=== PATIENT | male | born 1945 | race Caucasian/White ===

== ENCOUNTER 2025-06-23 23:30 | Inpatient (IN) | payer MEDICARE ==
[~2025-06-23] VITALS: Ht 167.6 cm; Wt 90.7 kg
[2025-06-24] VITALS (54 sets, daily range): BP systolic 72–141; BP diastolic 40–90; TEMP 97.5–98.5; O2SAT 93–100
[2025-06-24] MEDS: IV NORMAL SALINE 1000 ML BAG IV ONE ×4 (00:02→03:51)
[2025-06-24 00:03] LABS: PLATELET COUNT (AUTO) 204 K/uL (152-348); RED BLOOD CELL COUNT(AUTO) 4.42 MIL/uL (4.06-5.63); RED CELL DISTRIBUTION WIDTH 14.1 % (12.1-16.2); WHITE BLOOD COUNT (AUTO) 5.7 K/uL (3.6-10.2)
[2025-06-24 00:15] LABS: CREATININE 2.5 mg/dL (0.6-1.3); SODIUM SERUM 142 mmol/L (136-145); UREA NITROGEN, BLOOD 41 mg/dL (7-18)
[2025-06-24] MEDS ORDERED: FENO43CA6 PO (00:18)
[2025-06-24] MEDS ORDERED: GABA300C PO ×2 (00:18→10:35)
[2025-06-24] MEDS ORDERED: THYR30TA2 PO (00:18)
[2025-06-24] MEDS ORDERED: LOSA25TA27 PO (00:18)
[2025-06-24] MEDS ORDERED: AMLO2.5T4 PO (00:18)
[2025-06-24 00:21] LABS: ASPARTATE AMINOTRANSFERASE 31 U/L (15-37); TOTAL PROTEIN, SERUM 7.3 g/dL (6.4-8.2)
[2025-06-24 00:24] LABS: ETHANOL < 3 MG/DL (0-10)
[2025-06-24 02:50] LABS: *BILIRUBIN,URIN 1+ (NEGATIVE); *BLOOD, URINE NEGATIVE (NEGATIVE); *CLARITY,URINE HAZY (CLEAR); *COLOR,URINE YELLOW (YELLOW); *KETONES,URINE NEGATIVE (NEGATIVE); *PROTEIN,URINE NEGATIVE (NEGATIVE); *UROBILINOGEN,URINE 1.0 E.U./dl (NORMAL); LEUKOCYTE ESTERASE ,URINE NEGATIVE (NEGATIVE); NITRITE, URINE NEGATIVE (NEGATIVE); UGLUCOSE NEGATIVE (NEGATIVE)
[2025-06-24 03:02] LABS: *AMPHETAMINE, URINE NEGATIVE (NEGATIVE); *BARBITURATE, URINE NEGATIVE (NEGATIVE); *BENZODIAZEPINE, URINE NEGATIVE (NEGATIVE); *CANNABINOID, URINE POSITIVE (NEGATIVE); *COCCAINE, URINE NEGATIVE (NEGATIVE); *OPIATE, URINE POSITIVE (NEGATIVE); *PHENCYCLIDINE SCREEN,URINE NEGATIVE (NEGATIVE); FENTANYL, URINE NEGATIVE (NEGATIVE)
[2025-06-24 03:06] LABS: SQUAMOUS EPITHELIAL CELL,UR FEW /HPF (NONE SEEN)
[2025-06-24 03:07] LABS: CALCIUM OXALATE CRYSTALS,UR FEW /HPF (NONE SEEN)
[2025-06-24] MEDS ORDERED: NALOXONE HCL 0.4 MG/ML AMPUL ONE (03:17)
[2025-06-24] MEDS: NALOXONE HCL 0.4 MG/ML AMPUL IV ONE (03:51)
[2025-06-24] MEDS ORDERED: REMEDY ESSENTIAL ZINC PASTE 113 GM TP PRN (04:00)
[2025-06-24] MEDS ORDERED: ONDANSETRON 4 MG/2 ML VIAL IV PRN (04:00)
[2025-06-24] MEDS: IV NS 1000 ML 1,000 ML IV ONE ×2 (08:17→14:24)
[2025-06-24 08:57] LABS: ABG BASE EXCESS -8.6 mmol/L (-2.0-3.0); ABG HCO3 18.9 mmol/L (21.0-28.0); ABG PCO2 48.1 mmHg (35.0-48.0); ABG PH 7.213 (7.350-7.450); ABG PO2 103.0 mmHg (83.0-108.0); ABG SITE RIGHT RADIAL; ABG TOTAL HEMOGLOBIN 10.6 G/dL (13.5-17.5); AaDO2 96.5 mmHg; FIO2 32.0 %; FLOW, BLOOD GAS 3.00 L/min (0.00-30.00)
[2025-06-24] MEDS: NALOXONE HCL 0.4 MG/ML AMPUL IV PRN (09:31)
[2025-06-24] MEDS ORDERED: TIZA4TAB5 PO (10:30)
[2025-06-24] MEDS ORDERED: DULO30CA52 PO (10:32)
[2025-06-24] MEDS ORDERED: FENO135C4 PO (10:33)
[2025-06-24] MEDS ORDERED: TAMS-3 PO (10:34)
[2025-06-24] MEDS ORDERED: CLON0.5T4 PO (10:36)
[2025-06-24] MEDS ORDERED: ZOLP5TAB8 PO (10:36)
[2025-06-24] MEDS: IV NS 1000 ML 1,000 ML IV PRN (10:40)
[2025-06-24] MEDS: IV NORMAL SALINE 250 ML IV ONE (12:17)
[2025-06-24] MEDS ORDERED: LORAZEPAM 2 MG/1 ML VIAL IV PRN (12:45)
[2025-06-24] MEDS ORDERED: NOREPINEPHRINE 8MG/NS 250ML 250 ML IV ONE (15:58)
[2025-06-24] MEDS: NALOXONE HCL 4 MG in IV NORMAL SALINE 246 ML IV PRN ×2 (16:41→19:52)
[2025-06-24] MEDS: NOREPINEPHRINE 8MG/NS 250ML 250 ML IV PRN ×2 (17:29→19:38)
[2025-06-24 19:16] LABS: PLATELET COUNT (AUTO) 183 K/uL (152-348); RED BLOOD CELL COUNT(AUTO) 4.01 MIL/uL (4.06-5.63); RED CELL DISTRIBUTION WIDTH 14.4 % (12.1-16.2); WHITE BLOOD COUNT (AUTO) 5.4 K/uL (3.6-10.2)
[2025-06-24 19:27] LABS: ABG BASE EXCESS -13.7 mmol/L (-2.0-3.0); ABG HCO3 13.5 mmol/L (21.0-28.0); ABG PCO2 35.9 mmHg (35.0-48.0); ABG PH 7.193 (7.350-7.450); ABG PO2 96.0 mmHg (83.0-108.0); ABG SITE LEFT RADIAL; ABG TOTAL HEMOGLOBIN 11.6 G/dL (13.5-17.5); AaDO2 95.8 mmHg; FIO2 30.0 %; SET RATE, BG 18.0
[2025-06-24 19:27] LABS: ASPARTATE AMINOTRANSFERASE 25 U/L (15-37); CREATININE 1.9 mg/dL (0.6-1.3); SODIUM SERUM 138 mmol/L (136-145); TOTAL PROTEIN, SERUM 6.1 g/dL (6.4-8.2); UREA NITROGEN, BLOOD 35 mg/dL (7-18)
[2025-06-24] MEDS ORDERED: NOREPINEPHRINE 8MG/NS 250ML 250 ML IV PRN (19:30)
[2025-06-24] MEDS ORDERED: SODIUM BICARBONATE 8.4% 50 MEQ/50 ML DISP.SYRIN IV ONE (20:41)
[2025-06-24] MEDS ORDERED: TAMSULOSIN HCL 0.4 MG CAP.SR.24H ONE (20:41)
[2025-06-24] MEDS ORDERED: PIPERACILLIN/TAZOBACTAM/D5W 50 ML ONE (20:41)
[2025-06-24] MEDS: TAMSULOSIN HCL 0.4 MG CAP.SR.24H PO SCH (20:42)
[2025-06-24] MEDS ORDERED: ALBUTEROL SULFATE 2.5 MG/ 0.5 ML NEBU NEB PRN (20:45)
[2025-06-24] MEDS: PIPERACILLIN/TAZO 2.25 G in IV DEXTROSE 5% 50 ML IV SCH (20:46)
[2025-06-24] MEDS: SODIUM BICARBONATE 8.4% 50 MEQ/50 ML DISP.SYRIN IV ONE (20:46)
[2025-06-24] MEDS: DULOXETINE 30 MG CAPSULE.DR PO SCH (20:51)
[2025-06-24] MEDS: PIPERACILLIN SODIUM/TAZOBACTAM 3.375 G in IV DEXTROSE 5% 50 ML IV SCH (20:53)
[2025-06-25] VITALS (36 sets, daily range): BP systolic 95–152; BP diastolic 51–123; TEMP 98–100.7; O2SAT 95–99
[2025-06-25] MEDS ORDERED: PIPERACILLIN/TAZOBACTAM/D5W 50 ML IV ONE (05:04)
[2025-06-25 05:23] LABS: ASPARTATE AMINOTRANSFERASE 29 U/L (15-37); CREATINE KINASE, TOTAL 462 U/L (39-308); CREATININE 1.7 mg/dL (0.6-1.3); TOTAL PROTEIN, SERUM 6.1 g/dL (6.4-8.2); UREA NITROGEN, BLOOD 30 mg/dL (7-18)
[2025-06-25 05:27] LABS: SODIUM SERUM 148 mmol/L (136-145)
[2025-06-25 06:14] LABS: ABG BASE EXCESS -8.1 mmol/L (-2.0-3.0); ABG HCO3 18.2 mmol/L (21.0-28.0); ABG PCO2 40.2 mmHg (35.0-48.0); ABG PH 7.274 (7.350-7.450); ABG PO2 84.5 mmHg (83.0-108.0); ABG SITE LEFT RADIAL; ABG TOTAL HEMOGLOBIN 11.3 G/dL (13.5-17.5); AaDO2 95.1 mmHg; FIO2 32.0 %; FLOW, BLOOD GAS 3.00 L/min (0.00-30.00)
[2025-06-25] MEDS ORDERED: FOLIC ACID 1 MG TABLET ONE (08:23)
[2025-06-25] MEDS ORDERED: THIAMINE HCL 100 MG TABLET ONE (08:24)
[2025-06-25] MEDS: THIAMINE HCL 100 MG TABLET PO SCH (08:28)
[2025-06-25] MEDS: FOLIC ACID 1 MG TABLET PO SCH (08:29)
[2025-06-25] MEDS: FENOFIBRATE NANOCRYSTALLIZED 145 MG TABLET PO SCH (08:44)
[2025-06-25] MEDS: MULTIVITAMINS,THERAPEUTIC TABLET PO SCH (08:44)
[2025-06-25] MEDS ORDERED: FENOFIBRIC ACID PO SCH (09:00)
[2025-06-25] MEDS: LORAZEPAM 0.5 MG TABLET PO PRN (22:09)
[2025-06-25] MEDS: ACETAMINOPHEN 325 MG TABLET PO PRN (22:27)
[2025-06-25] MEDS: TIZANIDINE HCL 4 MG TABLET PO PRN (23:06)
[2025-06-26] VITALS (7 sets, daily range): BP systolic 99–135; BP diastolic 59–82; TEMP 98.2–99.8; O2SAT 93–98
[2025-06-26] MEDS: ZOLPIDEM 5 MG TABLET PO PRN (01:15)
[2025-06-26 05:11] LABS: PTH, INTACT 55 pg/mL (15-65)
[2025-06-26 08:00] LABS: ASPARTATE AMINOTRANSFERASE 42 U/L (15-37); CREATININE 1.2 mg/dL (0.6-1.3); SODIUM SERUM 140 mmol/L (136-145); TOTAL PROTEIN, SERUM 5.7 g/dL (6.4-8.2); UREA NITROGEN, BLOOD 17 mg/dL (7-18)
[2025-06-26] MEDS: QUETIAPINE FUMARATE 25 MG TABLET PO SCH (12:38)
[2025-06-26] MEDS: PIPERACILLIN SODIUM/TAZOBACTAM 3.375 G in IV DEXTROSE 5% 100 ML IV SCH (14:23)
[2025-06-27] MEDS: OLANZAPINE 10 MG VIAL IM ONE (04:12)
[2025-06-27 06:19] VITALS: BP 159/79; TEMP 98.9; O2SAT 97
[2025-06-27 06:52] LABS: ASPARTATE AMINOTRANSFERASE 64 U/L (15-37); CREATININE 1.1 mg/dL (0.6-1.3); SODIUM SERUM 143 mmol/L (136-145); TOTAL PROTEIN, SERUM 7.2 g/dL (6.4-8.2); UREA NITROGEN, BLOOD 13 mg/dL (7-18)
[2025-06-27] MEDS ORDERED: QUET25TA36 PO (09:41)
[2025-06-27] MEDS ORDERED: FOLI1TAB94 PO (09:41)
[2025-06-27] MEDS ORDERED: THIA100T13 PO (09:41)
[2025-06-27 10:02] VITALS: O2SAT 97
[2025-06-27 11:59] VITALS: BP 152/87; TEMP 98.5; O2SAT 96
== END 2025-06-27 17:00 | disposition home health service (06) | DRG 917 ==
LOC: ER 23:38 → TELE3 06-24 01:56 → ICU IN 06-24 16:36 → TELE3 06-25 14:40 → MEDSURG3 06-26 08:16
PROVIDERS: ADMIT Registered Nurse Psychiatric/Mental Health; ATTEND Internal Medicine
PROC: 5A09357 Assistance with Respiratory Ventilation, Less than 24 Consecutive Hours, Continuous Positive Airway Pressure (ICD-10-PCS; principal; 2025-06-24)
DX: T40.2X1A Poisoning by other opioids, accidental (unintentional), initial encounter (principal); G92.8 Other toxic encephalopathy; N17.0 Acute kidney failure with tubular necrosis; J96.92 Respiratory failure, unspecified with hypercapnia; J96.91 Respiratory failure, unspecified with hypoxia; I45.2 Bifascicular block; M62.82 Rhabdomyolysis; R57.9 Shock, unspecified; D68.59 Other primary thrombophilia; F11.10 Opioid abuse, uncomplicated; F29 Unspecified psychosis not due to a substance or known physiological condition; E78.5 Hyperlipidemia, unspecified; E03.9 Hypothyroidism, unspecified; E86.0 Dehydration; E66.9 Obesity, unspecified; Z68.32 Body mass index [BMI] 32.0-32.9, adult; Y92.019 Unspecified place in single-family (private) house as the place of occurrence of the external cause; F10.10 Alcohol abuse, uncomplicated; Y90.0 Blood alcohol level of less than 20 mg/100 ml; F12.90 Cannabis use, unspecified, uncomplicated; I13.10 Hypertensive heart and chronic kidney disease without heart failure, with stage 1 through stage 4 chronic kidney disease, or unspecified chronic kidney disease; N18.9 Chronic kidney disease, unspecified; Z74.09 Other reduced mobility; Z87.891 Personal history of nicotine dependence; N40.0 Benign prostatic hyperplasia without lower urinary tract symptoms; Z79.899 Other long term (current) drug therapy; G62.9 Polyneuropathy, unspecified; Z78.1 Physical restraint status
CPT/HCPCS: 36415; 36600; 70450; 71045; 72125; 76770; 82803; 83605; 83690; 83735; 83970; 84100; 84155; 84165; 84443; 84484; 85025; 87040; 93307; 94660; 94760; A4606; A4663; C1758; G0378; G0480; J2312; J2358; J2543; J3490; J7040